=== PATIENT | female | born 1970 | race Caucasian/White ===

== ENCOUNTER 2022-06-08 22:57 | Emergency (ER) | payer OTHER ==
[2022-06-08 23:04] VITALS: BP 138/76; PULSE 104; RESP 16; TEMP 98.3
[2022-06-08] MEDS ORDERED: BACITRACIN OINT 1 EACH PACKET TOPICAL ONE (23:12)
[2022-06-08] MEDS ORDERED: LIDOCAINE 1% INJ 10MG/ML (20 ML MDV) SQ STA (23:12)
[2022-06-08] MEDS ORDERED: DIPH,PERTUS(ACELL)TETVAC-LF 0.5 ML VIAL IM ONE (23:48)
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
== END 2022-06-09 01:01 | disposition home or self-care (01) ==
LOC: EC 22:57
DX: S01.511A Laceration without foreign body of lip, initial encounter (principal); S02.5XXA Fracture of tooth (traumatic), initial encounter for closed fracture; S01.512A Laceration without foreign body of oral cavity, initial encounter; S01.21XA Laceration without foreign body of nose, initial encounter; B19.10 Unspecified viral hepatitis B without hepatic coma; Z23 Encounter for immunization; Z88.0 Allergy status to penicillin; Z88.2 Allergy status to sulfonamides; V18.4XXA Pedal cycle driver injured in noncollision transport accident in traffic accident, initial encounter; Y92.89 Other specified places as the place of occurrence of the external cause
CPT/HCPCS: 99283; 90471; 12013; 90715; J2001